=== PATIENT | female | born 1960 | race African-American/Black ===

== ENCOUNTER 2018-04-13 07:27 | Outpatient (CLI) | payer OTHER ==
--- NOTE | 2018-04-13 09:23 | RAD ---
LUMBAR SPINE FOUR VIEWS: History: 57-year-old female with history of low back pain, degenerative disc disease, radiculopathy, and spina l stenosis. Comparison: 12-11-17 FINDINGS: Laminectomy changes at L3 and L4. Marked anterolisthesis of L3 on L4 with abnormal worsening of the a nterolisthesis with flexion relative to extension, evidence for instability and abnormal translation. IMPRESSION: Marked worsening of the anterolisthesis at L3-4 with flexion compared to extension, evidence for inst ability/abnormal translation. Laminectomy changes at this level. No evidence for other significant ac nataliya process. POS: MIKAYLA
--- NOTE | 2018-04-13 09:29 | MRI ---
MRI LUMBAR SPINE WITH AND WITHOUT CONTRAST: Technique: Multiplanar, multisequence MRI images were obtained of the lumbar spine. Post contrast paul ges were obtained with administration of IV MultiHance. Indications: Low back pain. Radiation to both legs. History of lumbar surgery in 2016. Comparison: MRI lumbar spine, 2013. FINDINGS: The lumbar vertebrae maintain height. The disc spaces are preserved with mild loss of disc space note d at L3-4, L4-5, and L5-S1. Degenerative disc signal changes are seen at these levels. There is a slight anterolisthesis at L3-4 which has progressed when compared to the exam of 01-11-14. L1-2: Mild disc bulge with mild facet arthrosis. No central canal or foraminal stenosis. L2-3: Mild disc bulge. Mild to moderate facet hypertrophy and arthrosis. No significant central canal or foraminal stenosis. L3-4: Slight anterolisthesis which is slightly more prominent than on the prior study. There is a bro ad based disc bulge with evidence of annular fissure. This flattens the thecal sac. Facet arthrosis a nd facet hypertrophy is prominent. These changes result in moderate central canal stenosis. There is bilateral foraminal stenosis due to the diffuse disc bulge and facet hypertrophy. L4-5: Post op laminectomy changes are now seen posteriorly with enhancement at the operative site. Th ere has been prior discectomy with enhancement seen. There is abnormal signal in the anterior spinal canal with evidence of annular fissure and disc bulge, however, no evidence of residual or recurrent disc protrusion seen on the post contrast images. There is facet hypertrophy. Mild central canal sten osis. Bilateral foraminal stenosis secondary to the broad based bulge and facet hypertrophy. L5-S1: Mild diffuse disc bulge, slightly more prominent to the right. Facet hypertrophy. Mild to mode rate central canal stenosis. Foramina appear patent. IMPRESSION: 1. At L3-4, slight anterolisthesis is now seen with a broad based disc bulge. Prominent facet arthros is and hypertrophy. Mild central canal and foraminal stenosis at this level as described above. 2. At L4-5, post-operative changes are noted as described above. POS: [facility]
== END 2018-04-13 07:28 | disposition home or self-care (01) ==
LOC: BICMRI 07:27
PROVIDERS: ATTEND Physician Assistant Surgical
DX: M51.16 Intervertebral disc disorders with radiculopathy, lumbar region (principal); M48.061 Spinal stenosis, lumbar region without neurogenic claudication; M43.16 Spondylolisthesis, lumbar region; Z98.890 Other specified postprocedural states
CPT/HCPCS: 72110; 72158; 82565

== ENCOUNTER 2019-02-14 10:18 | Outpatient (CLI) | payer OTHER ==
--- NOTE | 2019-02-14 16:03 | CT ---
CT LUMBAR SPINE WITHOUT CONTRAST: INDICATIONS: Low back pain. Prior lumbar surgery. COMPARISON: MRI lumbar spine from 04/13/2018. TECHNIQUE: Axial tomograms obtained with multiplanar reconstruction. FINDINGS: Lumbar vertebrae maintain height. Disk spaces are maintained. There is mild anterolisthesis at L3-L4, measured at approximately 6 mm. This appears to have increase d when compared to the 04/13/2018 MRI. At L1-L2 there is mild diffuse disk bulge. No central canal or foraminal stenosis. At L2-L3 mild diffuse disk bulge flattens the anterior thecal sac. Facet and ligamentous hypertrophy. Mild central canal stenosis. At L3-L4, anterolisthesis is noted above. Broad-based disk bulge, similar to the prior MRI exam. prom inently facet hypertrophy. Moderate to severe central canal stenosis. Bilateral foraminal stenosis se condary to the diffuse disk bulge and facet hypertrophy. At L4-L5, posterior laminectomy change. Broad-based disk bulge. There is facet and ligamentous hypert rophy. Mild central canal stenosis. Bilateral foraminal stenosis. At L5-S1, posterior laminectomy change. Diffuse disk bulge. Mild central canal stenosis. No significa nt foraminal stenosis. IMPRESSION: 1. Increased anterolisthesis at L3-L4 when compared to prior MRI. Moderate to severe central canal st enosis and bilateral foraminal stenosis at this level as described. 2. Bilateral foraminal stenosis and mild central canal stenosis at L4-L5, as described. POS: [facility]
== END 2019-02-14 10:19 | disposition home or self-care (01) ==
LOC: SCSCT 10:18
PROVIDERS: ATTEND Surgery
DX: M54.16 Radiculopathy, lumbar region (principal); M43.16 Spondylolisthesis, lumbar region; M48.061 Spinal stenosis, lumbar region without neurogenic claudication; M54.30 Sciatica, unspecified side
CPT/HCPCS: 72131

== ENCOUNTER 2025-01-02 09:00 | Outpatient (CLI) | payer MEDICAID ==
[2025-01-02] MEDS ORDERED: Iopamidol 370 76% 100 ML VIAL ONE (09:48)
== END 2025-01-02 09:01 | disposition home or self-care (01) ==
LOC: CT 09:00
PROVIDERS: ATTEND Internal Medicine
DX: C34.32 Malignant neoplasm of lower lobe, left bronchus or lung (principal); D50.8 Other iron deficiency anemias; R91.8 Other nonspecific abnormal finding of lung field; R59.1 Generalized enlarged lymph nodes
CPT/HCPCS: 71260; 74177; Q9967

== ENCOUNTER 2025-01-23 10:55 | Emergency (ER) | payer MEDICAID | END 2025-01-23 11:45 | disposition home or self-care (01) | LOC: ERS 10:55 | DX: T82.848A Pain due to vascular prosthetic devices, implants and grafts, initial encounter (principal); E11.9 Type 2 diabetes mellitus without complications; I10 Essential (primary) hypertension; Z79.899 Other long term (current) drug therapy; Z79.84 Long term (current) use of oral hypoglycemic drugs; Z87.891 Personal history of nicotine dependence | CPT/HCPCS: 71045 ==

== ENCOUNTER 2025-03-15 08:41 | Outpatient (CLI) | payer MEDICAID ==
[2025-03-15 09:09] LABS: Estimated GFR - POC 51.0
[2025-03-15] MEDS ORDERED: Iopamidol 370 76% 100 ML VIAL ONE (09:36)
== END 2025-03-15 08:42 | disposition home or self-care (01) ==
LOC: CT 08:41
PROVIDERS: ATTEND Internal Medicine
DX: C34.32 Malignant neoplasm of lower lobe, left bronchus or lung (principal); D50.8 Other iron deficiency anemias; R91.8 Other nonspecific abnormal finding of lung field; J18.1 Lobar pneumonia, unspecified organism; J98.4 Other disorders of lung
CPT/HCPCS: 71260; 74177; 82565; Q9967